=== PATIENT | female | born 1945 | race Caucasian/White ===

== ENCOUNTER 2017-10-12 22:07 | Inpatient (IN) | payer OTHER, BC ==
[~2017-10-12] VITALS: Ht 152.4 cm; Wt 99.7 kg
[~2017-10-12 22:07] MED LIST: CELEBREX200 MG PO; Ecotrin PO; Feosol PO; HYDROCHLOROTHIA25 MG PO; Hydrodiuril,Oretic,E PO; K-DUR20 MEQ PO; K-Dur PO; Klor-Con M20 PO; LEXAPRO10 MG PO; LO-DOSE ASPIRIN81 M1 PO; MOBIC15 MG PO; PRILOSEC OTC20 MG PO; Percocet 5/325,Endoc PO; PriLOSEC OTC PO; PriLOSEC PO; Senokot S,Pericolace PO; Vicodin,Norco 5/325 PO; ZOCOR20 MG PO; Zocor PO
[2017-10-13 07:23] VITALS: BP 181/95
[2017-10-13 15:49] VITALS: BP 137/61
[2017-10-13 20:08] VITALS: BP 108/53
[2017-10-14 00:20] VITALS: BP 99/60
[2017-10-14 04:23] VITALS: BP 102/59
[2017-10-14 07:21] LABS: HEMATOCRIT 29.3 % (36.0-46.0); MCV 84.9 FL (83-99)
[2017-10-14 07:23] LABS: HEMOGLOBIN 9.4 G/DL (11.9-15.5)
[2017-10-14 07:50] VITALS: BP 100/52
[2017-10-14] MEDS ORDERED: HYDROCODON-ACE1 EAC7 PO (08:56)
[2017-10-14 12:29] VITALS: BP 140/58
== END 2017-10-14 14:15 | disposition home or self-care (01) | DRG 483 ==
LOC: CANRESERV 22:07 → ENRESERV 22:07 → 2SOUTH 10-13 06:34 → ENRESERV 10-13 07:13 → 2SOUTH 10-13 12:37 → 3WEST 10-13 14:04 → 2SOUTH 10-13 14:50 → 3WEST 10-14 14:15
PROVIDERS: Orthopaedic Surgery
PROC: 0RRJ00Z Replacement of Right Shoulder Joint with Reverse Ball and Socket Synthetic Substitute, Open Approach (ICD-10-PCS; principal; 2017-10-13)
DX: M19.011 Primary osteoarthritis, right shoulder (principal); Z96.653 Presence of artificial knee joint, bilateral; M12.9 Arthropathy, unspecified; E66.9 Obesity, unspecified; I10 Essential (primary) hypertension; E78.5 Hyperlipidemia, unspecified; F41.9 Anxiety disorder, unspecified; Z68.41 Body mass index [BMI] 40.0-44.9, adult; Z87.891 Personal history of nicotine dependence
CPT/HCPCS: 85014; 85018; C1713; C1776; J0171; J0330; J0690; J1100; J2250; J2405; J2795; J7030; J7050; Q0175